=== PATIENT | female | born 1980 | race Asian ===

== ENCOUNTER 2019-04-27 06:37 | Emergency (ER) | payer OTHER ==
[~2019-04-27] VITALS: Ht 162.6 cm; Wt 115.0 kg
[~2019-04-27 06:37] MED LIST: METF-416 PO; PROP20TA7 PO
[2019-04-27] MEDS ORDERED: IBUPROFEN 600MG TABLET PO ONE (07:15)
[2019-04-27 09:45] VITALS: BP 119/79
== END 2019-04-27 09:45 | disposition home or self-care (01) ==
LOC: ER 06:37
DX: S20.211A Contusion of right front wall of thorax, initial encounter (principal); I10 Essential (primary) hypertension; E11.9 Type 2 diabetes mellitus without complications; X58.XXXA Exposure to other specified factors, initial encounter; Y93.E9 Activity, other interior property and clothing maintenance; Y92.018 Other place in single-family (private) house as the place of occurrence of the external cause; Z79.899 Other long term (current) drug therapy; Z79.84 Long term (current) use of oral hypoglycemic drugs
CPT/HCPCS: 71101; 99283

== ENCOUNTER 2023-07-15 12:21 | Emergency (ER) | payer OTHER ==
[~2023-07-15] VITALS: Ht 162.6 cm; Wt 113.4 kg
[2023-07-15 12:49] VITALS: O2SAT 97
[2023-07-15 13:16] LABS: CLARITY URINE CLOUDY (CLEAR); COLOR URINE YELLOW (YELLOW); GLUCOSE URINE 3+ (NEGATIVE); KETONES URINE 2+ (NEGATIVE); LEUKOCYTE ESTERASE URINE NEGATIVE (NEGATIVE); NITRITE URINE NEGATIVE (NEGATIVE); OCCULT BLOOD URINE 3+ (NEGATIVE); PH URINE 5.5 (4.5-8.0); PROTEIN URINE TRACE (NEGATIVE); SPECIFIC GRAVITY URINE 1.034 (1.005-1.030); UROBILINOGEN URINE 0.2 E.U./dL (0.2-1.0)
[2023-07-15 13:26] LABS: BASOPHILS % 0.3 % (0.0-2.0); EOSINOPHILS % 0.1 % (0.0-5.0); HEMATOCRIT. 45.1 % (36.0-48.0); HEMOGLOBIN. 15.4 g/dL (12.0-16.0); LYMPHOCYTES % 10.4 % (20.0-50.0); MEAN CORPUSCULAR HEMOGLOBIN 32.1 pg (28.0-32.0); MEAN CORPUSCULAR VOLUME 94.2 fL (81.0-99.0); MEAN PLATELET VOLUME 7.3 fl (7.4-10.4); MONOCYTES % 6.1 % (2.0-8.0); NEUTROPHILS % 83.1 % (40.0-76.0); PLATELET 471 x1000/uL (130-400); RED BLOOD CELL COUNT 4.79 mill/uL (4.2-5.4); RED CELL DISTRIBUTION WIDTH 14.1 % (11.6-14.6); WHITE BLOOD COUNT 10.8 x1000/uL (4.5-11.0)
[2023-07-15 13:37] LABS: CHLORIDE 101 mEq/L (98-107); POTASSIUM 3.6 mEq/L (3.5-5.1); SODIUM 141 mEq/L (136-145)
[2023-07-15 13:37] LABS: RBC URINE 50-100 /hpf (0-2)
[2023-07-15 13:38] LABS: BACTERIA URINE 4+; SQUAMOUS EPITHELIAL CELL URINE 1+ /lpf (RARE/1+); YEAST URINE NONE SEEN
[2023-07-15 13:38] LABS: CARBON DIOXIDE 28 mEq/L (21-32)
[2023-07-15 13:41] LABS: HCG SCREEN NEGATIVE
[2023-07-15 13:43] LABS: CREATININE 0.8 mg/dL (0.6-1.0); GLUCOSE 190 mg/dL (70-105); UREA NITROGEN BLOOD 11 mg/dL (9-23)
[2023-07-15 13:45] LABS: ALANINE AMINOTRANSFERASE 47 IU/L (10-49); ALBUMIN 5.3 g/dL (3.2-4.8); ASPARTATE AMINOTRANSFERASE 22 IU/L (<34); BILIRUBIN TOTAL 0.7 mg/dL (0.1-1.0); PROTEIN TOTAL 8.9 g/dL (6.0-8.3)
[2023-07-15] MEDS: SODIUM CHLORIDE 0.9% 1,000 ML IV ONE (14:18)
[2023-07-15] MEDS: ONDANSETRON HCL 4MG/2ML INJ IV STA (14:18)
[2023-07-15] MEDS: KETOROLAC 30MG/ML VIAL IV STA (14:19)
[2023-07-15] MEDS ORDERED: CEFTRIAXONE SODIUM 500MG VIAL IV ONE (16:00)
[2023-07-15] MEDS ORDERED: NAPR500T7 MT (16:07)
[2023-07-15] MEDS ORDERED: ONDA8TAB13 MT (16:07)
[2023-07-15] MEDS ORDERED: CEFP200T13 MT (16:07)
[2023-07-15] MEDS: CEFTRIAXONE 1GM/50ML 50ML IV NR (16:33)
[2023-07-15] MEDS: DIPHENHYDRAMINE 50MG/ML VIAL IV ONE (17:26)
[2023-07-15] MEDS: PROCHLORPERAZINE 10MG/2ML VIAL IV ONE (17:56)
[2023-07-15 18:33] VITALS: BP 134/79; RESP 18; TEMP 98.2
[2023-07-15 18:51] VITALS: PULSE 102
== END 2023-07-15 18:53 | disposition home or self-care (01) ==
LOC: ER 12:57
DX: G43.909 Migraine, unspecified, not intractable, without status migrainosus (principal); E11.9 Type 2 diabetes mellitus without complications; N39.0 Urinary tract infection, site not specified; R11.2 Nausea with vomiting, unspecified; E27.9 Disorder of adrenal gland, unspecified; I10 Essential (primary) hypertension; Z90.710 Acquired absence of both cervix and uterus
CPT/HCPCS: 80053; 81003; 81025; 84703; 83690; 85025; 87086; 87186; 87077; 36415; 74177; 96361; 96365; 96366; 96375; 99285; J0696; J1200; J1885; J2405; J0780; J7030; Z7610

== ENCOUNTER 2023-07-17 10:56 | Inpatient (IN) | payer OTHER ==
[~2023-07-17] VITALS: Ht 153.4 cm; Wt 112.9 kg
[~2023-07-17 10:56] MED LIST changes: +CEFP200T13 MT; +NAPR500T7 MT; +ONDA8TAB13 MT
[2023-07-17] MEDS: ONDANSETRON HCL 4MG/2ML INJ IV STA (11:32)
[2023-07-17] MEDS: SODIUM CHLORIDE 0.9% 1,000 ML IV ONE (11:32)
[2023-07-17 11:57] LABS: BASOPHILS % 0.6 % (0.0-2.0); EOSINOPHILS % 0.7 % (0.0-5.0); HEMATOCRIT. 43.7 % (36.0-48.0); HEMOGLOBIN. 14.6 g/dL (12.0-16.0); LYMPHOCYTES % 22.6 % (20.0-50.0); MEAN CORPUSCULAR HEMOGLOBIN 31.7 pg (28.0-32.0); MEAN CORPUSCULAR HGB CONC 33.3 g/dL (31.0-37.0); MEAN CORPUSCULAR VOLUME 95.2 fL (81.0-99.0); MEAN PLATELET VOLUME 7.3 fl (7.4-10.4); MONOCYTES % 8.3 % (2.0-8.0); NEUTROPHILS % 67.8 % (40.0-76.0); PLATELET 399 x1000/uL (130-400); RED BLOOD CELL COUNT 4.59 mill/uL (4.2-5.4); RED CELL DISTRIBUTION WIDTH 14.1 % (11.6-14.6); WHITE BLOOD COUNT 7.6 x1000/uL (4.5-11.0)
[2023-07-17 12:09] LABS: CHLORIDE 100 mEq/L (98-107); POTASSIUM 3.1 mEq/L (3.5-5.1); SODIUM 138 mEq/L (136-145)
[2023-07-17 12:10] LABS: CALCIUM 9.5 mg/dL (8.7-10.4); CARBON DIOXIDE 24 mEq/L (21-32)
[2023-07-17 12:12] LABS: HCG SCREEN NEGATIVE
[2023-07-17 12:15] LABS: CREATININE 0.9 mg/dL (0.6-1.0); GLUCOSE 153 mg/dL (70-105); UREA NITROGEN BLOOD 12 mg/dL (9-23)
[2023-07-17 12:17] LABS: ALANINE AMINOTRANSFERASE 26 IU/L (10-49); ALBUMIN 4.9 g/dL (3.2-4.8); ASPARTATE AMINOTRANSFERASE 22 IU/L (<34); BILIRUBIN TOTAL 0.7 mg/dL (0.1-1.0); PROTEIN TOTAL 8.5 g/dL (6.0-8.3); TROPONIN I HIGH SENSITIVITY < 4 ng/L (3.0-34)
[2023-07-17] MEDS: FAMOTIDINE 20MG/2ML VIAL IV NR (13:02)
[2023-07-17] MEDS: METOCLOPRAMIDE HCL 10MG/2ML VIAL IV NR (13:02)
[2023-07-17] MEDS: DIPHENHYDRAMINE 50MG/ML VIAL IV NR (13:03)
[2023-07-17] MEDS: POTASSIUM CHLORIDE 20MEQ TABLET SR PO NR (14:11)
[2023-07-17 14:52] LABS: TROPONIN I HIGH SENSITIVITY < 4 ng/L (3.0-34)
[2023-07-17] MEDS ORDERED: CLONIDINE 0.1MG TABLET PO PRN (16:15)
[2023-07-17] MEDS ORDERED: ONDANSETRON HCL 4MG/2ML INJ IV PRN (16:15)
[2023-07-17] MEDS ORDERED: DEXTROSE 50% WATER 50ML SYRINGE IV PRN (16:15)
[2023-07-17] MEDS ORDERED: GUAIFENESIN 200MG/10ML SUGAR FREE UDC PO PRN (16:15)
[2023-07-17] MEDS ORDERED: IPRATROPIUM/ALBUTEROL 0.5-3(2.5)MG/3ML NEB HHN PRN (16:15)
[2023-07-17] MEDS ORDERED: DOCUSATE SODIUM 100MG CAPSULE PO PRN (16:15)
[2023-07-17] MEDS: INSULIN LISPRO 100 UNITS/ML SUBCUT SCH (17:15)
[2023-07-17] MEDS: BLOOD SUGAR DIAGNOSTIC STRIP TEST SCH (17:29)
[2023-07-17] MEDS: DEXT 5%/0.9% NACL 1,000 ML IV ONE (17:30)
[2023-07-17] MEDS: FAMOTIDINE 20MG TABLET PO SCH (21:32)
[2023-07-17 22:00] VITALS: BP 125/77; PULSE 96; RESP 19; TEMP 97.4
[2023-07-18] MEDS: ACETAMINOPHEN 325MG TABLET PO PRN (04:50)
[2023-07-18 07:23] LABS: BASOPHILS % 0.9 % (0.0-2.0); EOSINOPHILS % 1.5 % (0.0-5.0); HEMATOCRIT. 39.4 % (36.0-48.0); HEMOGLOBIN. 13.1 g/dL (12.0-16.0); LYMPHOCYTES % 31.9 % (20.0-50.0); MEAN CORPUSCULAR HEMOGLOBIN 31.3 pg (28.0-32.0); MEAN CORPUSCULAR HGB CONC 33.2 g/dL (31.0-37.0); MEAN CORPUSCULAR VOLUME 94.3 fL (81.0-99.0); MEAN PLATELET VOLUME 7.4 fl (7.4-10.4); MONOCYTES % 10.5 % (2.0-8.0); NEUTROPHILS % 55.2 % (40.0-76.0); PLATELET 345 x1000/uL (130-400); RED BLOOD CELL COUNT 4.18 mill/uL (4.2-5.4); RED CELL DISTRIBUTION WIDTH 14.2 % (11.6-14.6); WHITE BLOOD COUNT 5.1 x1000/uL (4.5-11.0)
[2023-07-18 07:53] LABS: CARBON DIOXIDE 24 mEq/L (21-32); CHLORIDE 103 mEq/L (98-107); POTASSIUM 3.6 mEq/L (3.5-5.1); SODIUM 138 mEq/L (136-145)
[2023-07-18 07:54] LABS: CALCIUM 8.4 mg/dL (8.7-10.4)
[2023-07-18 07:57] LABS: THYROID STIMULATING HORMONE 0.55 uIU/mL (0.55-4.78)
[2023-07-18 07:58] LABS: CREATININE 0.7 mg/dL (0.6-1.0)
[2023-07-18 07:59] LABS: GLUCOSE 128 mg/dL (70-105); UREA NITROGEN BLOOD 9 mg/dL (9-23)
[2023-07-18 08:00] VITALS: BP 115/82; PULSE 82; RESP 18; TEMP 97.4
[2023-07-18 08:00] LABS: ALANINE AMINOTRANSFERASE 17 IU/L (10-49); ALBUMIN 3.9 g/dL (3.2-4.8); ASPARTATE AMINOTRANSFERASE 17 IU/L (<34)
[2023-07-18 08:01] LABS: BILIRUBIN TOTAL 0.4 mg/dL (0.1-1.0); PROTEIN TOTAL 6.4 g/dL (6.0-8.3)
[2023-07-18] MEDS: AMLODIPINE 10MG TABLET PO SCH (08:35)
[2023-07-18] MEDS: CEFTRIAXONE 1GM/50ML 50 ML IV NR (09:19)
[2023-07-18 11:04] VITALS: BP 125/69; PULSE 75; TEMP 97.6; O2SAT 98
[2023-07-18 12:00] VITALS: BP 114/68; PULSE 84; RESP 18; TEMP 97.1
[2023-07-18 13:06] LABS: CLARITY URINE CLEAR (CLEAR); COLOR URINE YELLOW (YELLOW); GLUCOSE URINE 3+ (NEGATIVE); KETONES URINE 2+ (NEGATIVE); LEUKOCYTE ESTERASE URINE NEGATIVE (NEGATIVE); NITRITE URINE NEGATIVE (NEGATIVE); OCCULT BLOOD URINE NEGATIVE (NEGATIVE); PH URINE 5.5 (4.5-8.0); PROTEIN URINE NEGATIVE (NEGATIVE); SPECIFIC GRAVITY URINE 1.037 (1.005-1.030); UROBILINOGEN URINE 0.2 E.U./dL (0.2-1.0)
[2023-07-18 14:13] LABS: SQUAMOUS EPITHELIAL CELL URINE 2+ /lpf (RARE/1+)
[2023-07-18 14:14] LABS: WBC URINE 0-2 /hpf (0-2)
[2023-07-18 14:15] LABS: RBC URINE 0-2 /hpf (0-2)
[2023-07-18 14:16] LABS: BACTERIA URINE TRACE
== END 2023-07-18 14:27 | disposition home or self-care (01) | DRG 392 ==
LOC: ER 10:56 → EDBEDREQ 13:42 → 5WST 15:29 → EDBEDREQ 15:30 → EDBEDREQTM 15:30 → 7WST 21:59
PROVIDERS: ADMIT Hospitalist; ATTEND Hospitalist
DX: K52.9 Noninfective gastroenteritis and colitis, unspecified (principal); Z68.41 Body mass index [BMI] 40.0-44.9, adult; E27.8 Other specified disorders of adrenal gland; E88.09 Other disorders of plasma-protein metabolism, not elsewhere classified; K29.70 Gastritis, unspecified, without bleeding; I10 Essential (primary) hypertension; E66.01 Morbid (severe) obesity due to excess calories; E11.65 Type 2 diabetes mellitus with hyperglycemia; K59.00 Constipation, unspecified; I45.10 Unspecified right bundle-branch block; E78.5 Hyperlipidemia, unspecified; E87.6 Hypokalemia; R00.0 Tachycardia, unspecified; Z90.710 Acquired absence of both cervix and uterus
CPT/HCPCS: 36415; 71045; 80053; 81003; 82962; 83036; 83605; 83880; 84439; 84443; 84484; 84703; 85025; 85379; 93005; 99291; J0696; J1200; J1815; J2405; J2765; J3490; J7030

== ENCOUNTER 2023-12-26 22:11 | Inpatient (IN) | payer OTHER ==
[~2023-12-26] VITALS: Ht 162.6 cm; Wt 107.1 kg
[~2023-12-26 22:11] MED LIST changes: +ONDA-241 MT; -ONDA8TAB13 MT
[2023-12-26 23:26] LABS: BASOPHILS % 0.6 % (0.0-2.0); HEMATOCRIT. 47.6 % (36.0-48.0); HEMOGLOBIN. 15.2 g/dL (12.0-16.0); LYMPHOCYTES % 10.4 % (20.0-50.0); MEAN CORPUSCULAR HEMOGLOBIN 30.4 pg (28.0-32.0); MEAN CORPUSCULAR VOLUME 94.9 fL (81.0-99.0); MEAN PLATELET VOLUME 7.8 fl (7.4-10.4); PLATELET 419 x1000/uL (130-400); RED BLOOD CELL COUNT 5.02 mill/uL (4.2-5.4); RED CELL DISTRIBUTION WIDTH 14.3 % (11.6-14.6); WHITE BLOOD COUNT 11.3 x1000/uL (4.5-11.0)
[2023-12-26 23:32] LABS: CHLORIDE 102 mEq/L (98-107); POTASSIUM 3.2 mEq/L (3.5-5.1); SODIUM 139 mEq/L (136-145)
[2023-12-26 23:33] LABS: CARBON DIOXIDE 19 mEq/L (21-32)
[2023-12-26 23:37] LABS: HCG SCREEN NEGATIVE
[2023-12-26 23:38] LABS: CREATININE 1.3 mg/dL (0.6-1.0); GLUCOSE 290 mg/dL (70-105); UREA NITROGEN BLOOD 20 mg/dL (9-23)
[2023-12-26 23:40] LABS: ALANINE AMINOTRANSFERASE 13 IU/L (10-49); ALBUMIN 5.2 g/dL (3.2-4.8); ASPARTATE AMINOTRANSFERASE 15 IU/L (<34); BILIRUBIN DIRECT 0.1 mg/dL (<=3.0); BILIRUBIN TOTAL 0.5 mg/dL (0.1-1.0)
[2023-12-26 23:45] LABS: PROTEIN TOTAL 8.5 g/dL (6.0-8.3)
[2023-12-26 23:46] LABS: ETHANOL BLOOD < 10 mg/dL (<10); TROPONIN I HIGH SENSITIVITY < 4 ng/L (3.0-34)
[2023-12-26] MEDS: ONDANSETRON HCL 4MG/2ML INJ IV ONE (23:56)
[2023-12-26 23:57] LABS: LACTIC ACID 4.5 mmol/L (0.4-2.0)
[2023-12-26] MEDS: SODIUM CHLORIDE 0.9% 1,000 ML IV ONE ×2 (23:58)
[2023-12-27 00:09] LABS: BETA HYDROXYBUTYRATE 3.9 mMol/L (0.0-0.3)
[2023-12-27] MEDS: POTASSIUM CHLORIDE 20MEQ/PACKET PO ONE (00:23)
[2023-12-27 00:39] LABS: CLARITY URINE CLEAR (CLEAR); COLOR URINE YELLOW (YELLOW); GLUCOSE URINE 3+ (NEGATIVE); KETONES URINE 3+ (NEGATIVE); LEUKOCYTE ESTERASE URINE 1+ (NEGATIVE); NITRITE URINE NEGATIVE (NEGATIVE); OCCULT BLOOD URINE NEGATIVE (NEGATIVE); PH URINE 5.5 (4.5-8.0); PROTEIN URINE TRACE (NEGATIVE); SPECIFIC GRAVITY URINE 1.036 (1.005-1.030); UROBILINOGEN URINE 0.2 E.U./dL (0.2-1.0)
[2023-12-27 00:46] LABS: *AMPHETAMINES SCREEN URINE NEGATIVE (NEGATIVE); *BARBITURATES SCREEN URINE NEGATIVE (NEGATIVE); *BENZODIAZEPINES SCREEN URINE NEGATIVE (NEGATIVE); *COCAINE SCREEN URINE NEGATIVE (NEGATIVE); CANNABINOID URINE SCREEN PRESUMPTIVE POSITIVE (NEGATIVE); METHADONE URINE SCREEN NEGATIVE (NEGATIVE); OPIATES URINE SCREEN NEGATIVE (NEGATIVE); PHENCYCLIDINE URINE SCREEN NEGATIVE (NEGATIVE)
[2023-12-27 00:47] LABS: ECSTASY MDMA SCREEN URINE NEGATIVE (NEGATIVE)
[2023-12-27 00:48] LABS: BG BASE EXCESS -1.5 mmol/L (-2.0-3.0); BG CARBOXYHEMOGLOBIN 0.4 % (0.5-1.5); BG DEOXYHEMOGLOBIN 3.3 % (0.0-5.0); BG FRACTION INSPIRED OXYGEN 21; BG HCO3 ACT 21.1 mmol/L (21.0-28.0); BG METHEMOGLOBIN 0.3 % (0.5-1.5); BG OXYGEN SATURATION 96.7 % (94.0-98.0); BG PCO2 30.1 mmHg (32.0-45.0); BG PH 7.463 (7.350-7.450); BG PO2 79.6 mmHg (83.0-108.0); BG SAMPLE SITE RIGHT RADIAL; BG TOTAL HEMOGLOBIN 15.4 g/dL (12.0-16.0); BG VENT MODE ROOM AIR
[2023-12-27] MEDS: CEFTRIAXONE 1GM/50ML 50 ML IV ONE (00:50)
[2023-12-27] MEDS: KETOROLAC 30MG/ML VIAL IV ONE (00:51)
[2023-12-27] MEDS: SODIUM CHLORIDE 0.9% 1,000 ML IV ONE (00:51)
[2023-12-27] MEDS: MAGNESIUM 2 G PREMIX 50 ML IV ONE (01:18)
[2023-12-27 01:44] LABS: WBC URINE 15-25 /hpf (0-2)
[2023-12-27 01:45] LABS: BACTERIA URINE F; RBC URINE 0-2 /hpf (0-2); SQUAMOUS EPITHELIAL CELL URINE 1+ /lpf (RARE/1+)
[2023-12-27] MEDS ORDERED: GUAIFENESIN 200MG/10ML SUGAR FREE UDC PO PRN (02:30)
[2023-12-27] MEDS ORDERED: ENOXAPARIN 40MG/0.4ML SYR SUBCUT SCH (02:30)
[2023-12-27] MEDS ORDERED: IPRATROPIUM/ALBUTEROL 0.5-3(2.5)MG/3ML NEB HHN PRN (02:30)
[2023-12-27] MEDS ORDERED: MAGNESIUM/ALUMINUM HYDROXIDE/SIMETHICONE 30ML UDC PO PRN (02:30)
[2023-12-27] MEDS ORDERED: ACETAMINOPHEN 325MG TABLET PO PRN (02:30)
[2023-12-27] MEDS ORDERED: DOCUSATE SODIUM 100MG CAPSULE PO PRN (02:30)
[2023-12-27] MEDS ORDERED: CLONIDINE 0.1MG TABLET PO PRN (02:30)
[2023-12-27] MEDS ORDERED: DEXTROSE 50% WATER 50ML SYRINGE IV PRN (02:30)
[2023-12-27] MEDS ORDERED: DIPHENHYDRAMINE 50MG/ML VIAL IV PRN (02:30)
[2023-12-27] MEDS: ACETAMINOPHEN 325MG TABLET PO PRN (03:03)
[2023-12-27] MEDS: INSULIN GLARGINE 100 UNITS/ML SUBCUT SCH (03:06)
[2023-12-27] MEDS: PIPERACILLIN/TAZO 3.375G/50ML IV SCH (03:26)
[2023-12-27] MEDS: SODIUM CHLORIDE 0.9% 1,000 ML IV SCH (03:26)
[2023-12-27] MEDS: ONDANSETRON HCL 4MG/2ML INJ IV PRN (03:26)
[2023-12-27] MEDS: KCL 10MEQ/50ML PREMIX 50 ML IV NR (03:53)
[2023-12-27 04:41] LABS: BASOPHILS % 0.6 % (0.0-2.0); EOSINOPHILS % 0.1 % (0.0-5.0); HEMATOCRIT. 43.2 % (36.0-48.0); HEMOGLOBIN. 14.3 g/dL (12.0-16.0); LYMPHOCYTES % 18.8 % (20.0-50.0); MEAN CORPUSCULAR HEMOGLOBIN 30.9 pg (28.0-32.0); MEAN CORPUSCULAR HGB CONC 33.2 g/dL (31.0-37.0); MEAN CORPUSCULAR VOLUME 93.1 fL (81.0-99.0); MEAN PLATELET VOLUME 7.4 fl (7.4-10.4); MONOCYTES % 8.7 % (2.0-8.0); NEUTROPHILS % 71.8 % (40.0-76.0); PLATELET 400 x1000/uL (130-400); RED BLOOD CELL COUNT 4.63 mill/uL (4.2-5.4); RED CELL DISTRIBUTION WIDTH 14.4 % (11.6-14.6); WHITE BLOOD COUNT 9.7 x1000/uL (4.5-11.0)
[2023-12-27 04:47] LABS: POTASSIUM 4.4 mEq/L (3.5-5.1)
[2023-12-27 04:48] LABS: CALCIUM 9.2 mg/dL (8.7-10.4)
[2023-12-27 04:58] LABS: T4 FREE 1.34 ng/dL (0.89-1.76); THYROID STIMULATING HORMONE 0.64 uIU/mL (0.55-4.78)
[2023-12-27] MEDS: METOCLOPRAMIDE HCL 5MG TABLET PO SCH (06:29)
[2023-12-27] MEDS: INSULIN LISPRO 100 UNITS/ML SUBCUT SCH ×2 (07:50→08:20)
[2023-12-27] MEDS: BLOOD SUGAR DIAGNOSTIC STRIP TEST SCH (09:09)
[2023-12-27] MEDS: FAMOTIDINE 20MG/2ML VIAL IV SCH (09:43)
[2023-12-27] MEDS: ENOXAPARIN 30MG/0.3ML SYR SUBCUT SCH (09:47)
[2023-12-27] MEDS: CEFTRIAXONE 1GM/50ML 50 ML IV SCH (13:09)
[2023-12-27] MEDS ORDERED: NALOXONE HCL 0.4MG/ML VIAL IV PRN (13:30)
[2023-12-27] MEDS: HYDROCODONE/ACETAMINOPHEN 5/325MG TABLET PO PRN (13:45)
[2023-12-27 21:10] VITALS: BP 128/80; PULSE 88; RESP 16; TEMP 36.61404; TEMP 36.6404; O2SAT 98
[2023-12-27] MEDS ORDERED: PIPERACILLIN/TAZO 3.375G/50ML 50 ML IV SCH (22:00)
[2023-12-28] VITALS: BP 132/79; PULSE 78; RESP 18; TEMP 36.3918; O2SAT 97
[2023-12-28 04:00] VITALS: BP 121/74; PULSE 69; RESP 17; TEMP 36.72516; O2SAT 98
[2023-12-28 08:00] VITALS: BP 129/89; PULSE 79; RESP 16; TEMP 36.33624; O2SAT 98
[2023-12-28 08:29] LABS: CHLORIDE 110 mEq/L (98-107); POTASSIUM 4.1 mEq/L (3.5-5.1); SODIUM 141 mEq/L (136-145)
[2023-12-28 08:30] LABS: CARBON DIOXIDE 23 mEq/L (21-32)
[2023-12-28 08:31] LABS: CALCIUM 9.1 mg/dL (8.7-10.4)
[2023-12-28 08:35] LABS: CREATININE 0.8 mg/dL (0.6-1.0); GLUCOSE 114 mg/dL (70-105); UREA NITROGEN BLOOD 13 mg/dL (9-23)
[2023-12-28 08:37] LABS: HEMATOCRIT 39.8 % (36.0-48.0); HEMOGLOBIN 12.7 g/dL (12.0-16.0); MEAN CORPUSCULAR HGB CONC 31.8 g/dL (31.0-37.0); MEAN CORPUSCULAR VOLUME 94.5 fL (81.0-99.0); PLATELET 326 x1000/uL (130-400); RED BLOOD CELL COUNT 4.22 mill/uL (4.2-5.4); RED CELL DISTRIBUTION WIDTH 14.4 % (11.6-14.6); WHITE BLOOD COUNT 7.6 x1000/uL (4.5-11.0)
[2023-12-28] MEDS ORDERED: NITR-87 PO (11:15)
[2023-12-28] MEDS ORDERED: ONDA4TAB50 PO (11:20)
[2023-12-28 11:51] VITALS: BP 126/90; PULSE 88; TEMP 97.5; O2SAT 98
[2023-12-28 12:00] VITALS: BP 126/90; PULSE 88; RESP 16; TEMP 36.3918; TEMP 36.39180; O2SAT 98
== END 2023-12-28 13:00 | disposition home or self-care (01) | DRG 872 ==
LOC: ER 22:11 → 5WST 12-27 00:59 → 7EST 12-27 22:47
PROVIDERS: ADMIT Preventive Medicine Clinical Informatics; ATTEND Preventive Medicine Clinical Informatics
DX: A41.9 Sepsis, unspecified organism (principal); N17.9 Acute kidney failure, unspecified; N39.0 Urinary tract infection, site not specified; Z68.41 Body mass index [BMI] 40.0-44.9, adult; E87.6 Hypokalemia; R16.0 Hepatomegaly, not elsewhere classified; E11.65 Type 2 diabetes mellitus with hyperglycemia; K76.0 Fatty (change of) liver, not elsewhere classified; E66.01 Morbid (severe) obesity due to excess calories; I10 Essential (primary) hypertension; K59.00 Constipation, unspecified; I45.10 Unspecified right bundle-branch block; E78.49 Other hyperlipidemia; E27.8 Other specified disorders of adrenal gland; Z90.710 Acquired absence of both cervix and uterus; Z79.899 Other long term (current) drug therapy; Z79.4 Long term (current) use of insulin
CPT/HCPCS: 36415; 36600; 71045; 74176; 76770; 80048; 80061; 80076; 80305; 80320; 81003; 82010; 82375; 82805; 82962; 83036; 83605; 83735; 84145; 84439; 84443; 84481; 84484; 84703; 85025; 85027; 87077; 87186; 93005; 99291; J0696; J1650; J1815; J1885; J2405; J2543; J3475; J3480; J3490; J7030; J8597; G0480